=== PATIENT | male | born 1965 | race Caucasian/White ===

== ENCOUNTER 2017-01-24 12:22 | Emergency (ER) | payer OTHER ==
[~2017-01-24] VITALS: Ht 177.8 cm; Wt 88.5 kg
[~2017-01-24 12:22] MED LIST: CYMBALTA30 MG PO; DEPAKOTE500 MG PO; ENDOCET 5-3251 EACH PO; FLEXERIL10 MG PO; NAPROSYN500 MG PO; NAPROXEN500 MG PO; NORCO 7.5/321 TABLET PO; OXYCODONE-ACET1 EACH PO; PERCOCET 10/1 TABLET PO; PERCOCET 5/31 TABLET PO; PREDNISONE10 MG PO; VALIUM2 MG PO; VALIUM5 MG PO; ZOFRAN ODT4 MG PO
[2017-01-24] MEDS ORDERED: KEFLEX500 MG PO (13:38)
[2017-01-24 14:08] VITALS: BP 138/87
== END 2017-01-24 14:09 | disposition home or self-care (01) ==
LOC: EME 12:22
PROC: 0HQGXZZ Repair Left Hand Skin, External Approach (ICD-10-PCS; principal; 2017-01-24)
PROC: 3E0234Z Introduction of Serum, Toxoid and Vaccine into Muscle, Percutaneous Approach (ICD-10-PCS; principal; 2017-01-24)
DX: S61.211A Laceration without foreign body of left index finger without damage to nail, initial encounter (principal); W31.1XXA Contact with metalworking machines, initial encounter; F17.200 Nicotine dependence, unspecified, uncomplicated
CPT/HCPCS: 73130; 99281; 99284; J3010